=== PATIENT | male | born 1950 | race Hispanic/Latino ===

== ENCOUNTER 2016-05-29 11:14 | Emergency (ER) | payer MEDICARE, OTHER ==
--- NOTE | 2016-05-29 12:22 | Emergency Department Report ---
HPI - General Chief Complaint: Wound/Laceration Time Seen by Provider: 05/29/16 12:07 - HPI HPI: Room 9 The patient is a 65-year-old male presenting with a chief complaint of left lower extremity wound. The patient states she has had a chronic wound on his left lower extremity and a history of lymphedema. The patient states is new home health nurse saw him yesterday and recommended he come to the ED because the wound looks "bad." The patient states she has not noticed any changes with his wound. Patient denies any history of fever. When asked how he is feeling the patient replies "pretty good." The patient states he has his chronic pain from his previous fractures but has taken his methadone 2 hours ago Location: Left lower extremity Duration: [see above] Quality: [see above] Severity: Mild Modifying factors: [see above] Context: [see above] Mode of transportation: [not driving] ED Past Medical Hx - Past Medical History Previous Medical History?: Yes Additional medical history: Lymphedema - Surgical History Past Surgical History?: Yes Additional Surgical History: Left hip, left arm - Family History Family history: no significant - Social History Smoking Status: Never Smoker Substance Use Type: Alcohol (occasional) ED Review of Systems ROS: Stated complaint: LT LEG WOUND Other details as noted in HPI Comment: All other systems reviewed and negative Constitutional: denies: chills, fever Eyes: denies: eye pain, eye discharge, vision change ENT: denies: ear pain, throat pain Respiratory: denies: cough, shortness of breath, wheezing Cardiovascular: denies: chest pain, palpitations Endocrine: no symptoms reported Gastrointestinal: denies: abdominal pain, nausea, diarrhea Genitourinary: denies: urgency, dysuria Musculoskeletal: denies: back pain, joint swelling, arthralgia Skin: lesions Neurological: denies: headache, weakness, paresthesias Psychiatric: denies: anxiety, depression Hematological/Lymphatic: denies: easy bleeding, easy bruising Physical Exam - Physical Exam Vital Signs: Vital Signs 05/29/16 05/29/16 11:34 11:46 Temperature 97.8 F Pulse Rate 73 Respiratory 17 Rate Blood Pressure 136/83 Blood Pressure 136/83 [Left] O2 Sat by Pulse 93 96 Oximetry Physical Exam: GENERAL: The patient is well-developed well-nourished morbidly obese male sitting on stretcher not appearing to be in acute distress. [] HEENT: Normocephalic. Atraumatic. Extraocular motions are intact. Patient has moist mucous membranes. NECK: Supple. Trachea midline CHEST/LUNGS: There is no respiratory distress noted. HEART/CARDIOVASCULAR: Regular. There is no tachycardia. ABDOMEN: Abdomen is obese SKIN: There is a chronic appearing erythematous wound to the lateral aspect of the left lower extremity. There is no discharge visualized. There is no foul odor noticed. NEURO: The patient is awake, alert, and oriented. The patient is cooperative. The patient has no focal neurologic deficits. The patient has normal speech MUSCULOSKELETAL: There is no evidence of acute injury. ED Course Vital Signs 05/29/16 05/29/16 11:34 11:46 Temperature 97.8 F Pulse Rate 73 Respiratory 17 Rate Blood Pressure 136/83 Blood Pressure 136/83 [Left] O2 Sat by Pulse 93 96 Oximetry ED Medical Decision Making - Lab Data Result diagrams: 05/29/16 12:40 05/29/16 12:40 - Differential Diagnosis chronic lower extremity wound Critical care attestation.: If time is entered above; I have spent that time in minutes in the direct care of this critically ill patient, excluding procedure time. ED Disposition Clinical Impression: Chronic ulcer of left lower extremity Disposition: DISCHARGED TO HOME OR SELFCARE Is pt being admited?: No Does the pt Need Aspirin: No Condition: Stable Instructions: Chronic Wound Care (ED) Additional Instructions: Return to the emergency department immediately should you develop worsening symptoms, fever, inability to tolerate food or liquid or any other concerns. Referrals: [facility] [Outside] - 3-5 Days Time of Disposition: 13:38
[2016-05-29 13:00] LABS: Basophils % (Auto) 0.4 % (0.0-1.8); Eosinophils % (Auto) 1.7 % (0.0-4.3); Hematocrit 41.5 % (35.5-45.6); Hemoglobin 13.7 gm/dl (11.8-15.2); Mean Corpuscular HGB Conc 33 % (32-34); Mean Corpuscular Hemoglobin 33 pg (28-32); Mean Corpuscular Volume 100 fl (84-94); Platelet Count 180 K/mm3 (140-440); Red Blood Count 4.17 M/mm3 (3.65-5.03); Red Cell Distribution Width 14.7 % (13.2-15.2); White Blood Count 6.9 K/mm3 (4.5-11.0)
[2016-05-29 13:24] LABS: Anion Gap 14 mmol/L; BUN/Creatinine Ratio 27.14; Blood Urea Nitrogen 19 mg/dL (9-20); Calcium 8.8 mg/dL (8.4-10.2); Carbon Dioxide 32 mmol/L (22-30); Chloride 98.3 mmol/L (98-107); Glucose 122 mg/dL (75-100); Potassium 4.4 mmol/L (3.6-5.0); Sodium 140 mmol/L (137-145)
[2016-05-29 15:21] VITALS: BP 138/66
--- NOTE | 2016-05-30 11:03 | XRay Report ---
RIGHT WRIST, 3 VIEWS: HISTORY: Right wrist pain. FINDINGS: Borderline bone mineralization. Mild osteoarthritic changes are identified. No displaced fracture, dislocation or obvious ligamentous injury. Mild diffuse soft tissue swelling is suspected. IMPRESSION: Mild degenerative changes. Mild soft tissue swelling. No osseous injury detected.
== END 2016-05-29 19:44 | disposition home or self-care (01) ==
LOC: ED 11:14
DX: L97.929 Non-pressure chronic ulcer of unspecified part of left lower leg with unspecified severity (principal); X58.XXXA Exposure to other specified factors, initial encounter; Y93.89 Activity, other specified; Y92.9 Unspecified place or not applicable; Y99.9 Unspecified external cause status
CPT/HCPCS: 36415; 80048; 85025; 99284